=== PATIENT | female | born 1980 | race Caucasian/White ===

== ENCOUNTER 2018-05-21 14:56 | Emergency (ER) | payer SELFPAY ==
[~2018-05-21] VITALS: Ht 172.7 cm; Wt 70.3 kg
[2018-05-21] MEDS ORDERED: TESSALON PERLE100 MG ORAL (15:18)
[2018-05-21] MEDS ORDERED: NAPROXEN500 M2 ORAL (15:18)
--- NOTE | 2018-05-21 15:19 | Emergency Room Report ---
History of Present Illness General Chief Complaint: Upper Respiratory Illness Source: Patient Present Illness HPI 38-year-old female patient presents the ER complaining of cough and sore throat. Complaining of possible laryngitis. Reports voice sounds more scratchy and irritated. States that she had the flu last week however symptoms have improved. States his been taking naproxen for relief of symptoms. Reports coughing up sputum, denies coughing up blood.Reports chest discomfort with cough, states is reproducible. Denies fever. Denies vomiting or diarrhea. Denies recent travel outside the country. Denies smoking. Reports he did not receive a flu vaccine this year. Denies generalized aches and pains. Denies abdominal pain. Denies other aggravating or relieving factors. Denies smoking. Denies history of heart disease. Denies history of diabetes. Denies history of asthma or bronchitis. Allergies: Coded Allergies: No Known Allergies (Unverified , 05/21/18) Patient History Past Medical History: see triage record Last Menstrual Period: 04/28/18 Now: No Reviewed Nursing Documentation: PMH: Agreed; PSxH: Agreed Nursing Documentation-PMH Past Medical History: No Stated History Review of Systems All Other Systems: negative except mentioned in HPI Physical Exam Vital Signs Date Time Temp Pulse Resp B/P (MAP) Pulse Ox O2 Delivery O2 Flow Rate FiO2 05/21/18 15:00 98.8 62 20 118/66 98 Room Air Sp02 EP Interpretation: reviewed, normal General Appearance: well appearing, no apparent distress, alert, GCS 15, non- toxic Head: normocephalic, atraumatic Eyes: bilateral eye normal inspection, bilateral eye PERRL ENT: hearing grossly normal, normal pharynx, no angioedema, normal voice, uvula midline, moist mucus membranes Neck: full range of motion, no meningismus Respiratory: lungs clear, normal breath sounds, no rhonchi, no respiratory distress, no accessory muscle use, no wheezing, speaking full sentences, other - mild chest discomfort with TTP, no flail chest, no deformity Cardiovascular #1: regular rate, rhythm, no edema, normal capillary refill Cardiovascular #2: 2+ radial (R), 2+ radial (L) Musculoskeletal: back normal, digits/nails normal, gait/station normal, normal range of motion, non-tender, other - NVI, cap refill>2seconds, no TTP Neurologic: alert, oriented x3, responsive, motor strength/tone normal, sensory intact Psychiatric: mood/affect normal Skin: no rash Lymphatic: no adenopathy Medical Decision Making PA Attestation Dr. Oswald is my supervising Physician whom patient management has been discussed with. Diagnostic Impression: Primary Impression: Cough Additional Impression: Laryngitis ER Course Pt presents to ED c/o cough and laryngitis. DDX considered but are not limited to influenza, viral URI, pneumonia, strep throat, rhinitis, sinusitis, otitis media, otitis externa. VITAL SIGNS are WNL, patient is afebrile. ER COURSE: Lungs clear to auscultation, no wheezes, rhonci or rales. patient afebrile. Low suspicion for pneumonia, will not order CXR at this time. On PE, chest is TTP; chest pain likely musculoskeletal in nature secondary to cough, does not require cardiac workup at this time. Denies cardiac PMHx. Patient instructed to take NSAIDs as needed for pain symptoms. no tonsillar exudates, no pharyngeal erythema, history of cough, no fever, no stridor, uvula midline, low suspicion for peritonsillar abscess. Likely laryngitis causing pain symptoms, advised patient on voice rest. Likely viral etiology of symptoms. Symptomatic treatment. drink plenty of fluids. Salt water gargles for sore throat. Followup with PCP for further treatment and/or referral as needed. Patient reports injury to finger 3 weeks ago, states concerned if it is broken because it is still expressing pain. Advised offered patient's x-ray, patient declined. Advised patient on RICE: Rest, ice, compression, elevation. Full ROM, no TTP, cap refill <2seconds, no deformity. Low suspicion for fracture. ER precautions given. DISCHARGE: -Rx given for Naprosyn. Patient requested. -Rx given for Tessalon Perles for cough sx. At this time pt is stable for d/c to home. Patient is resting comfortably, in no acute distress, nontoxic appearing. Patient to take medications as instructed Will provide with patient care instructions and any necessary prescriptions. Care plan and follow-up instructions provided. Patient instructed to follow-up with primary care provider in 3 - 5 days. Patient questions asked and answered. Patient reports understanding and agreement to treatment plan. ER precautions given. Patient instructed to return to ER immediately for any new or worsening of symptoms including but not limited to increasing SOB, persistent fever, intractable vomiting. - Please note that this Emergency Department Report was dictated using [employer] support operations operator technology software, occasionally this can lead to erroneous entry secondary to interpretation by the dictation equipment. Last Vital Signs Date Time Temp Pulse Resp B/P (MAP) Pulse Ox O2 Delivery O2 Flow Rate FiO2 05/21/18 15:00 98.8 62 20 118/66 98 Room Air Disposition: HOME, SELF-CARE Condition: Stable Scripts Naproxen* (NAPROXEN*) 500 Mg Tablet 500 MG ORAL TWICE A WEEK, #30 TAB 0 Refills Prov: Deondre Reynoso 05/21/18 Benzonatate* (TESSALON PERLE*) 100 Mg Capsule 100 MG ORAL THREE TIMES A DAY, #30 PERLE Prov: Deondre Reynoso 05/21/18 Patient Instructions: Cough, Adult, [id number], Laryngitis, [id number], Upper Respiratory Infection, Adult Additional Instructions: Followup with primary care provider in 3 -5 days. Salt water gargles Take Tylenol for pain and fever symptoms Voice rest for laryngitis. Drink plenty of water. Take medications as directed. Patient questions asked and answered. ER precautions given, patient instructed to return to ER immediately for any new or worsening of symptoms including but not limited to intractable vomiting, difficulty breathing, inability to eat. Deondre Reynoso May 21, 2018 15:19
[2018-05-21 15:40] VITALS: BP 118/66
[2018-05-21 15:41] VITALS: BP 118/66
--- NOTE | 2018-05-21 15:41 | NUR ---
ER DISCHARGE NOTE: Patient is cleared to be discharged per ERMD, pt is aox4, on room air, with stable vital signs. pt was given dc and prescription instructions, pt was able to verbalize understanding, pt id band removed. pt is able to ambulate with steady gait. pt took all belongings.ED Nurse Note:
--- NOTE | 2018-05-21 15:42 | NUR ---
ER DISCHARGE NOTE: Patient is cleared to be discharged per ERMD, pt is aox4, on room air, with stable vital signs. pt was given dc and prescription instructions, pt was able to verbalize understanding, pt is able to ambulate with steady gait. pt took all belongings.
== END 2018-05-21 16:30 | disposition home or self-care (01) ==
LOC: EMR 15:30
DX: R05 Cough (principal); J04.0 Acute laryngitis
CPT/HCPCS: 99282

== ENCOUNTER 2018-12-24 12:10 | Emergency (ER) | payer MEDICAID, OTHER ==
[~2018-12-24] VITALS: Ht 172.7 cm; Wt 70.3 kg
[~2018-12-24 12:10] MED LIST: NAPROXEN500 M2 ORAL; TESSALON PERLE100 MG ORAL
[2018-12-24] MEDS ORDERED: NKM (12:22)
--- NOTE | 2018-12-24 12:29 | NUR ---
ED Nurse Note: pt walked in from home states she was jogging and missed the curb. pt c/o rt ankle pain and swelling. Pt awaiting ermd wesley .
--- NOTE | 2018-12-24 12:46 | Emergency Room Report ---
History of Present Illness General Chief Complaint: Lower Extremity Injury Source: Patient Present Illness HPI 38 YO Female presents to the ED c/o 8 out of 10 severity right ankle pain, tenderness, swelling and difficulty with ambulation status post mechanical trip and fall approximately 2 hours prior to arrival. Patient reports she is able to bear some weight however she states attempts to ambulate exacerbate her pain she denies previous injury to this extremity. She denies bruising, open wounds or bleeding. Patient denies paresthesias, loss of gross motor movements of the affected extremity. No other aggravating or relieving factors no other symptoms. 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 Allergies: Coded Allergies: No Known Allergies (Unverified , 05/21/18) Patient History Past Medical History: see triage record Past Surgical History: none Pertinent Family History: none Last Menstrual Period: 12/19/18 Now: No Reviewed Nursing Documentation: PMH: Agreed; PSxH: Agreed Nursing Documentation-PMH Past Medical History: No Stated History Review of Systems All Other Systems: negative except mentioned in HPI Physical Exam Vital Signs Date Time Temp Pulse Resp B/P (MAP) Pulse Ox O2 Delivery O2 Flow Rate FiO2 12/24/18 12:19 98.1 57 16 109/66 (80) 98 Room Air Sp02 EP Interpretation: reviewed, normal General Appearance: no apparent distress, alert, GCS 15, non-toxic Head: normocephalic, atraumatic Eyes: bilateral eye normal inspection, bilateral eye PERRL ENT: hearing grossly normal, normal voice Neck: full range of motion Respiratory: lungs clear, normal breath sounds, speaking full sentences Cardiovascular #1: regular rate, rhythm, normal capillary refill Cardiovascular #2: 2+ dorsalis pedis (R) Musculoskeletal: normal range of motion, tender - lateral aspect of the right ankle, Swelling noted to the lateral aspect of the right ankle. NVI, pedal pulse is palpated as 2+ Neurologic: alert, oriented x3, responsive, motor strength/tone normal, sensory intact, speech normal, grossly normal Psychiatric: judgement/insight normal Skin: normal color - no bruising noted. Medical Decision Making PA Attestation Dr. Johnson is my supervising Physician whom patient management has been discussed with. Diagnostic Impression: Primary Impression: Right ankle sprain Qualified Codes: S93.401A - Sprain of unspecified ligament of right ankle, initial encounter ER Course 38 YO Female presents to the ED c/o 8 out of 10 severity right ankle pain, tenderness, swelling and difficulty with ambulation status post mechanical trip and fall approximately 2 hours prior to arrival. Patient reports she is able to bear some weight however she states attempts to ambulate exacerbate her pain she denies previous injury to this extremity. She denies bruising, open wounds or bleeding. Patient denies paresthesias, loss of gross motor movements of the affected extremity. No other aggravating or relieving factors no other symptoms. 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 Ddx considered but are not limited to Fracture, dislocation, contusion, Sprain/ Strain/Spasm just to name a few. Vital signs: are WNL, pt. is afebrile H&PE are most consistent with musculoskeletal injury will perform imaging to r/ o fractures/dislocations. ORDERS: - X-ray Right ankle 3 views - negative for fx, Dislocation, or significant soft tissue injury, per preliminary read in ED, and signed by ALEXSANDER Arita , my supervising physician has reviewed, and agrees with my interpretation. ED INTERVENTIONS: - Tylenol 650mg PO - Right Ankle Stirrup Splint applied by electronics warfare technician. Pt. remains neurovascularly intact. -Patient is provided with crutches and instructed on their use DISCHARGE: At this time pt. is stable for d/c to home. Will provide printed patient care instructions, and any necessary prescriptions. Care plan and follow up instructions have been discussed with the patient prior to discharge. Other X-Ray Diagnostic Results Other X-Ray Diagnostic Results : X-Ray ordered: Right Ankle # of Views/Limited Vs Complete: 3 View Indication: Pain EP Interpretation: Yes ALEXSANDER Xray: Interpretation reviewed, by supervising MD, and agrees with findings. Interpretation: no dislocation, no soft tissue swelling, no fractures Impression: No acute disease Electronically Signed by: Lana Arita PA-C Last Vital Signs Date Time Temp Pulse Resp B/P (MAP) Pulse Ox O2 Delivery O2 Flow Rate FiO2 12/24/18 12:19 98.1 57 16 109/66 (80) 98 Room Air Status: improved Disposition: HOME, SELF-CARE Condition: Stable Scripts Ibuprofen* (MOTRIN*) 600 Mg Tablet 600 MG ORAL THREE TIMES A DAY, #30 TAB 0 Refills Prov: Lana Arita 12/24/18 Referrals: BIBI BANERJEE,REFERRING (PCP) Patient Instructions: Ankle Sprain Additional Instructions: Take medications as directed. Follow up with a Primary Care Provider in 3-5 days, even if your symptoms have resolved. Return sooner to ED if new symptoms occur, or current symptoms become worse. - Please note that this Emergency Department Report was dictated using [employer] apprentice technology software, occasionally this can lead to erroneous entry secondary to interpretation by the dictation equipment. Lana Arita Dec 24, 2018 12:46
--- NOTE | 2018-12-24 13:08 | NUR ---
ED Nurse Note: bedside imaging done
[2018-12-24] MEDS ORDERED: IBUPROFEN600 MG ORAL (13:23)
--- NOTE | 2018-12-24 13:35 | NUR ---
ED Nurse Note: splint applied by staff and pt provided with crutches . crutch gait teaching done.
--- NOTE | 2018-12-24 13:41 | NUR ---
ED Nurse Note: Pt cleared by health care Provider for discharge. DC instructions/prescription was given and explained to pt and verbalized understanding of teachings. All medical deviecs such as ID band removed. Pt is AAO x4, ambulatory and left with all personal belongings.
[2018-12-24 14:26] VITALS: BP 109/66
--- NOTE | 2018-12-24 15:57 | Diagnostic Imaging Report ---
Indication: Pain right ankle Comparison: None Findings: 3 views of the right ankle obtained. No acute fracture, malalignment, periostitis, or osteochondral defects are identified. Soft tissues are unremarkable.. Impression: No acute findings
== END 2018-12-24 13:41 | disposition home or self-care (01) ==
LOC: EMR 12:38
DX: S93.401A Sprain of unspecified ligament of right ankle, initial encounter (principal); W01.0XXA Fall on same level from slipping, tripping and stumbling without subsequent striking against object, initial encounter; Y92.9 Unspecified place or not applicable
CPT/HCPCS: 29515; 73610; Z7502; 99283

== ENCOUNTER → 2019-03-04 | Emergency (ER) | payer OTHER ==
[~2019-03-04] VITALS: Ht 172.7 cm; Wt 71.7 kg
[~2019-03-04] MED LIST changes: +IBUPROFEN600 MG ORAL; +NKM
[2019-03-04 18:29] VITALS: BP 122/78
[2019-03-04] MEDS: Morphine Sulfate 4mg/ml Inj (IV USE ONLY) IVP ONE ×2 (19:00→19:04)
[2019-03-04 19:11] LABS: BASOPHILS % (AUTO) 1.4 % (0.0-2.0); EOSINOPHILS % (AUTO) 0.6 % (0.0-3.0); HEMATOCRIT 38.2 % (37.0-47.0); HEMOGLOBIN 13.3 G/DL (12.0-16.0); LYMPHOCYTES % (AUTO) 16.4 % (20.0-45.0); MEAN CORPUSCULAR VOLUME 84 FL (80-99); MONOCYTES % (AUTO) 8.9 % (1.0-10.0); NEUTROPHILS % (AUTO) 72.7 % (45.0-75.0); PLATELET COUNT 207 K/UL (150-450); RED BLOOD COUNT 4.57 M/UL (4.20-5.40); RED CELL DISTRIBUTION WIDTH 11.1 % (11.6-14.8); WHITE BLOOD COUNT 7.2 K/UL (4.8-10.8)
[2019-03-04 19:42] LABS: APPEARANCE,URINE CLEAR; BILIRUBIN, URINE NEGATIVE (NEGATIVE); COLOR,URINE PALE YELLOW; GLUCOSE, URINE (UA) NEGATIVE (NEGATIVE); KETONES,URINE NEGATIVE (NEGATIVE); LEUKOCYTE ESTERASE ,URINE NEGATIVE (NEGATIVE); NITRITE,URINE NEGATIVE (NEGATIVE); PH,URINE 7 (4.5-8.0); PROTEIN,URINE NEGATIVE (NEGATIVE); UROBILINOGEN,URINE NORMAL MG/DL (0.0-1.0)
[2019-03-04 19:43] LABS: ANION GAP 11 mmol/L (5-15); BLOOD UREA NITROGEN 16 mg/dL (7-18); CALCIUM 8.8 MG/DL (8.5-10.1); CARBON DIOXIDE 24 MMOL/L (21-32); CHLORIDE 103 MMOL/L (98-107); CREATININE 0.9 MG/DL (0.55-1.30); POTASSIUM 3.8 MMOL/L (3.5-5.1); SODIUM 138 MMOL/L (136-145)
[2019-03-04 19:47] LABS: ALANINE AMINOTRANSFERASE 53 U/L (12-78); ALBUMIN 3.7 G/DL (3.4-5.0); ALKALINE PHOSPHATASE 57 U/L (46-116); ASPARTATE AMINO TRANSFERASE 93 U/L (15-37); BILIRUBIN,TOTAL 0.3 MG/DL (0.2-1.0)
--- NOTE | 2019-03-04 19:51 | Emergency Room Report ---
History of Present Illness General Chief Complaint: Abdominal Pain Source: Patient Present Illness HPI 38-year-old female presents with abdominal cramping onset earlier today. Pain rated 9/10. She reports that she had diarrhea yesterday but normal bowel movements today. Denies any fever, nausea, vomiting, urinary symptoms, flank pain, vaginal pain or discharge, history of STI's. She did not take anything for pain. LMP was 2 weeks ago. Allergies: Coded Allergies: No Known Allergies (Unverified , 05/21/18) Patient History Past Medical History: see triage record Past Surgical History: none Pertinent Family History: none Last Menstrual Period: 02/18/19 Now: No Reviewed Nursing Documentation: PMH: Agreed; PSxH: Agreed Nursing Documentation-PMH Past Medical History: No Stated History Review of Systems All Other Systems: negative except mentioned in HPI Physical Exam Vital Signs Date Time Temp Pulse Resp B/P (MAP) Pulse Ox O2 Delivery O2 Flow Rate FiO2 03/04/19 18:11 98.4 71 16 122/78 (93) 97 Room Air Sp02 EP Interpretation: reviewed, normal General Appearance: no apparent distress, alert, GCS 15, non-toxic Head: normocephalic, atraumatic Eyes: bilateral eye normal inspection, bilateral eye PERRL ENT: normal voice Respiratory: lungs clear, normal breath sounds, speaking full sentences Cardiovascular #1: regular rate, rhythm Gastrointestinal: normal bowel sounds, non tender, soft, non-distended, no guarding, no rebound Genitourinary: no CVA tenderness Neurologic: alert, oriented x3, responsive, speech normal Psychiatric: judgement/insight normal, mood/affect normal Skin: no rash Lymphatic: no adenopathy Medical Decision Making PA Attestation Dr. Weinstein is my supervising physician whom patient management and care has been discussed with. ER Course Pt. presents to the ED c/o abdominal cramping. Ddx considered but are not limited to spontaneous , ectopic , appendicitis, enteritis, IBS, IBD, gastroenteritis, DUB, PID, TOA, ovarian torsion. Vital signs: are WNL, pt. is afebrile H&PE are most consistent with dysfunctional uterine bleeding ORDERS: CBC,CMP,UA all normal negative ED COURSE/INTERVENTIONS: Morphine ordered for pain, however shortly after my encounter with the patient, she had some mild vaginal bleeding and her cramping resolved. Patient refused the morphine. DISCHARGE: At this time pt. is stable for d/c to home. Will provide printed patient care instructions. 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 Care plan and follow up instructions have been discussed with the patient prior to discharge. Last Vital Signs Date Time Temp Pulse Resp B/P (MAP) Pulse Ox O2 Delivery O2 Flow Rate FiO2 03/04/19 18:29 71 16 Room Air 03/04/19 18:29 98.4 122/78 97 Disposition: HOME, SELF-CARE Condition: Stable Kelsey Luke Mar 04, 2019 19:51
[2019-03-04 20:23] VITALS: BP 112/68
== END | disposition home or self-care (01) ==
LOC: EMR 20:15
DX: R10.9 Unspecified abdominal pain (principal); R19.7 Diarrhea, unspecified
CPT/HCPCS: 36415; 80053; 81003; 81025; 83690; 85025; 96374; J2405; Z7502; 99284